=== PATIENT | female | born 1940 | race Caucasian/White ===

== ENCOUNTER 2021-04-03 22:41 | Emergency (ER) | payer OTHER, SELFPAY ==
--- NOTE | ~2021-04-03 | XR_ITS ---
EXAMINATION: XR CHEST CLINICAL INFORMATION: Shortness of breath COMPARISON: 09/04/2020 TECHNIQUE: Frontal view of the chest was obtained. FINDINGS: Previously seen lingular pneumonia has resolved. Some minimal atelectasis or scarring is present at the lung bases. The lungs are otherwise clear. Heart size is normal. Degenerative changes present in the spine as well as both shoulders. XR/XR chest 1V IMPRESSION: No acute intrathoracic disease. Mild bibasilar atelectasis
[2021-04-03 23:23] VITALS: BP 137/77; PULSE 103; RESP 20; TEMP 39.6; O2SAT 98; BMI 26.2
--- NOTE | 2021-04-03 23:45 | PC.NURSE ---
pt to room with family. Pt awaiting for md to eval.
--- NOTE | 2021-04-04 00:05 | ED_ITS ---
HPI - Fever General Chief Complaint: Fever Stated Complaint: weakness Time Seen by Provider: 04/03/21 23:56 History of Present Illness HPI Narrative: Patient is an 80-year-old female presents today with having fever generalized malaise. Tired. Minimal coughing. Patient did not receive the coronavirus vaccine. Patient has a history of questionable calcification to her lungs. There is no history of pain with urination. Patient has some nausea. Feels very weak and tired. Symptoms been ongoing for about 2 days. She recently came from [place] for vacation. Related Data Allergies Allergy/AdvReac Type Severity Reaction Status Date / Time No Known Allergies Allergy Unverified 07/12/20 19:46 [No Known Allergies*] Review of Systems Review of Systems: Yes all other systems are reviewed and are negative FORMERLY [facility], [facility] Past Medical History Attestation statement: The following information was validated with the patient. Social History Social History Advance Directives: No Advance Directives Information Provided: No Physical Exam Vital Signs: Vital Signs: Last Vital Signs Temp 103.2 F H 04/03/21 23:23 Pulse 103 H 04/03/21 23:23 Resp 20 04/03/21 23:23 BP 137/77 04/03/21 23:23 Pulse Ox 98 04/03/21 23:23 Body Mass Index 26.2 Appearance: Alert. Oriented X3. No acute distress. Eyes: Pupils equal, round and reactive to light. ENT: Pharynx normal. Neck: Normal inspection. Neck supple. No lymph nodes noted. No crepitus CVS: Normal heart rate and rhythm. Pulses normal. Normal S1 and S2 Respiratory: No respiratory distress. Breath sounds normal. No Wheezing. No rales Abdomen: Soft and nontender. No rigidity. No distention. good BS x4 Skin: Skin warm and dry. Normal skin color. Normal skin turgor. Extremities: No lower extremity edema. Neurovascular intact to all extremities. No Lacerations. No Rash Neuro: Oriented X 3. No motor deficit. No sensory deficit. Moving all extermities. No slurred speech MDM - Fever MDM Narrative Medical decision making narrative: Patient's temperature came down with Tylenol. Patient's labs consistent with dehydration given IV fluids here in the emergency department. Patient's coronavirus test was positive. Chest x-ray was negative for pneumonia. After ambulation patient's stat stays at 97% she is well appearing. Patient told to follow strict home quarantine. She is in no distress. In stable condition Medical Records Attestation: I reviewed the patient's medical records. Lab Data Attestation: I reviewed the patient's lab results. Result diagrams: 04/04/21 00:23 04/04/21 00:23 Labs: Lab Results 04/04/21 04/04/21 04/04/21 Range/Units 00: 00:21 00:23 WBC 7.0 (4.8-10.8) X10*3/uL RBC 4.20 (4.20-5.50) X10*6/uL Hgb 12.7 (12.0-16.0) g/dl Hct 37.5 (37-47) % MCV 89.3 (80-98) fL MCH 30.2 (27.0-33.0) pg MCHC 33.9 (31.0-35.0) g/dl RDW 14.6 (11.0-16.0) % Plt Count 225 (160-400) X10*3/uL MPV 10.1 (9.4-12.3) fL Immature Gran % (Auto) 0.9 H (0.0-0.4) % Neut % (Auto) 68.1 (45-73) % Lymph % (Auto) 23.3 (20-40) % [place] % (Auto) 7.6 (2-11) % Eos % (Auto) 0.0 (0-4) % Baso % (Auto) 0.1 (0-2) % Lymph # (Auto) 1.6 (1.2-4.9) X10*3/uL [place] # (Auto) 0.5 (0.1-1.2) X10*3/uL Eos # (Auto) 0.0 (0.0-0.4) X10*3/uL Baso # (Auto) 0.0 (0.0-0.2) X10*3/uL Abs Immat Gran (auto) 0.06 H (0.00-0.03) X10*3/uL Absolute Neuts (auto) 4.8 (2.0-8.3) X10*3/uL Absolute Nucleated RBC 0.000 (0.0-0.012) X10*3/uL Nucleated RBC % (auto) 0.0 (0.0-0.2) /100WBC PT (10.8-13.0) SEC INR (0.9-1.1) Sodium (135-145) mmol/L Potassium (3.3-5.1) mmol/L Chloride (96-108) mmol/L Carbon Dioxide (22-29) mmol/L Anion Gap (12-20) BUN (9-16) mg/dL Creatinine (0.5-1.4) mg/dL Estim Creat Clear Calc Estimated GFR Random Glucose (60-115) mg/dL Lactic Acid (0.5-2.0) mmol/L Calcium (8.4-10.2) mg/dL Total Bilirubin (0.0-1.0) mg/dL Direct Bilirubin (0.0-0.5) mg/dL AST (5-31) U/L ALT (0-31) U/L Alkaline Phosphatase (39-117) U/L Troponin I High Sens (<3.5-17.0) ng/L Total Protein (6.5-8.0) g/dL Albumin (3.5-5.0) g/dL Urine Color YELLOW Urine Appearance HAZY Urine pH 6.5 (5.0-8.0) Ur Specific [place] 1.020 (1.005-1.025) Urine Protein 2+ H (NEG-TRACE) MG/DL Urine Glucose (UA) NEG (NEG) MG/DL Urine Ketones NEG (NEG) MG/DL Urine Blood TRACE (NEG) Urine Nitrite NEG (NEG) Ur Leukocyte Esterase 2+ H (NEG) Urine RBC 1-4 (0) /HPF Urine WBC 30-49 H (0-4) /HPF Ur Squamous Epith Cells 1+ /LPF Urine Bacteria 2+ /LPF Urine Mucus 1+ /LPF COVID-19 (ZONIA) Positive A (Negative) COVID-19 Clin Com See Note 04/04/21 04/04/21 04/04/21 Range/Units 00:23 00:23 00:23 WBC (4.8-10.8) X10*3/uL RBC (4.20-5.50) X10*6/uL Hgb (12.0-16.0) g/dl Hct (37-47) % MCV (80-98) fL MCH (27.0-33.0) pg MCHC (31.0-35.0) g/dl RDW (11.0-16.0) % Plt Count (160-400) X10*3/uL MPV (9.4-12.3) fL Immature Gran % (Auto) (0.0-0.4) % Neut % (Auto) (45-73) % Lymph % (Auto) (20-40) % [place] % (Auto) (2-11) % Eos % (Auto) (0-4) % Baso % (Auto) (0-2) % Lymph # (Auto) (1.2-4.9) X10*3/uL [place] # (Auto) (0.1-1.2) X10*3/uL Eos # (Auto) (0.0-0.4) X10*3/uL Baso # (Auto) (0.0-0.2) X10*3/uL Abs Immat Gran (auto) (0.00-0.03) X10*3/uL Absolute Neuts (auto) (2.0-8.3) X10*3/uL Absolute Nucleated RBC (0.0-0.012) X10*3/uL Nucleated RBC % (auto) (0.0-0.2) /100WBC PT 13.9 H (10.8-13.0) SEC INR 1.2 H (0.9-1.1) Sodium 135 (135-145) mmol/L Potassium 4.3 (3.3-5.1) mmol/L Chloride 101 (96-108) mmol/L Carbon Dioxide 25 (22-29) mmol/L Anion Gap 13 (12-20) BUN 30 H (9-16) mg/dL Creatinine 1.49 H (0.5-1.4) mg/dL Estim Creat Clear Calc 22.7 Estimated GFR 34 Random Glucose 192 H (60-115) mg/dL Lactic Acid 1.0 (0.5-2.0) mmol/L Calcium 11.2 H (8.4-10.2) mg/dL Total Bilirubin 0.5 (0.0-1.0) mg/dL Direct Bilirubin 0.2 (0.0-0.5) mg/dL AST 39 H (5-31) U/L ALT 27 (0-31) U/L Alkaline Phosphatase 40 (39-117) U/L Troponin I High Sens (<3.5-17.0) ng/L Total Protein 7.5 (6.5-8.0) g/dL Albumin 4.2 (3.5-5.0) g/dL Urine Color Urine Appearance Urine pH (5.0-8.0) Ur Specific [place] (1.005-1.025) Urine Protein (NEG-TRACE) MG/DL Urine Glucose (UA) (NEG) MG/DL Urine Ketones (NEG) MG/DL Urine Blood (NEG) Urine Nitrite (NEG) Ur Leukocyte Esterase (NEG) Urine RBC (0) /HPF Urine WBC (0-4) /HPF Ur Squamous Epith Cells /LPF Urine Bacteria /LPF Urine Mucus /LPF COVID-19 (ZONIA) (Negative) COVID-19 Clin Com 04/04/21 Range/Units 00:23 WBC (4.8-10.8) X10*3/uL RBC (4.20-5.50) X10*6/uL Hgb (12.0-16.0) g/dl Hct (37-47) % MCV (80-98) fL MCH (27.0-33.0) pg MCHC (31.0-35.0) g/dl RDW (11.0-16.0) % Plt Count (160-400) X10*3/uL MPV (9.4-12.3) fL Immature Gran % (Auto) (0.0-0.4) % Neut % (Auto) (45-73) % Lymph % (Auto) (20-40) % [place] % (Auto) (2-11) % Eos % (Auto) (0-4) % Baso % (Auto) (0-2) % Lymph # (Auto) (1.2-4.9) X10*3/uL [place] # (Auto) (0.1-1.2) X10*3/uL Eos # (Auto) (0.0-0.4) X10*3/uL Baso # (Auto) (0.0-0.2) X10*3/uL Abs Immat Gran (auto) (0.00-0.03) X10*3/uL Absolute Neuts (auto) (2.0-8.3) X10*3/uL Absolute Nucleated RBC (0.0-0.012) X10*3/uL Nucleated RBC % (auto) (0.0-0.2) /100WBC PT (10.8-13.0) SEC INR (0.9-1.1) Sodium (135-145) mmol/L Potassium (3.3-5.1) mmol/L Chloride (96-108) mmol/L Carbon Dioxide (22-29) mmol/L Anion Gap (12-20) BUN (9-16) mg/dL Creatinine (0.5-1.4) mg/dL Estim Creat Clear Calc Estimated GFR Random Glucose (60-115) mg/dL Lactic Acid (0.5-2.0) mmol/L Calcium (8.4-10.2) mg/dL Total Bilirubin (0.0-1.0) mg/dL Direct Bilirubin (0.0-0.5) mg/dL AST (5-31) U/L ALT (0-31) U/L Alkaline Phosphatase (39-117) U/L Troponin I High Sens 28.5 H* (<3.5-17.0) ng/L Total Protein (6.5-8.0) g/dL Albumin (3.5-5.0) g/dL Urine Color Urine Appearance Urine pH (5.0-8.0) Ur Specific [place] (1.005-1.025) Urine Protein (NEG-TRACE) MG/DL Urine Glucose (UA) (NEG) MG/DL Urine Ketones (NEG) MG/DL Urine Blood (NEG) Urine Nitrite (NEG) Ur Leukocyte Esterase (NEG) Urine RBC (0) /HPF Urine WBC (0-4) /HPF Ur Squamous Epith Cells /LPF Urine Bacteria /LPF Urine Mucus /LPF COVID-19 (ZONIA) (Negative) COVID-19 Clin Com Discharge Plan Discharge Clinical Impression: COVID-19 Patient Disposition: Home, Self-Care Instructions: COVID-19 (Coronavirus Disease 2019) (ED) Print Language: Bruneian
[2021-04-04] MEDS: Acetaminophen 325 MG TABLET 650 MG PO (00:15)
[2021-04-04] MEDS: 0.9 % Sodium Chloride 1,769.01 ML 1769.01 ML IV (00:16)
[2021-04-04 00:52] LABS: MANUAL DIFF FLAG NO
[2021-04-04 00:54] LABS: Basophils Percent Auto 0.1 % (0-2); Hematocrit 37.5 % (37-47); Hemoglobin 12.7 g/dl (12.0-16.0); Imm Gran Abs Auto 0.06 X10*3/uL (0.00-0.03); Imm Gran Pct Auto 0.9 % (0.0-0.4); Lymphocytes Absolute Auto 1.6 X10*3/uL (1.2-4.9); Lymphocytes Percent Auto 23.3 % (20-40); Mean Corpuscular HGB Conc 33.9 g/dl (31.0-35.0); Mean Corpuscular Hemoglobin 30.2 pg (27.0-33.0); Mean Corpuscular Volume 89.3 fL (80-98); Mean Platelet Volume 10.1 fL (9.4-12.3); Monocytes Absolute Auto 0.5 X10*3/uL (0.1-1.2); Monocytes Percent Auto 7.6 % (2-11); Neutrophils Absolute Auto 4.8 X10*3/uL (2.0-8.3); Neutrophils Percent Auto 68.1 % (45-73); Platelet Count 225 X10*3/uL (160-400); Red Cell Distribution Width 14.6 % (11.0-16.0)
[2021-04-04 00:55] LABS: Glucose Urine UA NEG (NEG); Leukocyte Esterase Urine 2+ (NEG); Nitrite Urine NEG (NEG); PH 6.5 (5.0-8.0); UACC Culture Trigger YES; Urine Blood TRACE (NEG); Urine Ketones NEG (NEG); Urine Protein 2+ MG/DL (NEG-TRACE)
[2021-04-04 00:57] LABS: Appearance Urine HAZY; Color Urine YELLOW
[2021-04-04 00:59] LABS: INTERNATIONAL NORM RATIO 1.2 (0.9-1.1); Prothrombin Time 13.9 SEC (10.8-13.0)
[2021-04-04 01:07] LABS: Bacteria Urine 2+ /LPF; Mucus Urine 1+ /LPF; Squamous Epithelial Cell Urine 1+ /LPF; WBC Urine 30-49 /HPF (0-4)
[2021-04-04 01:07] LABS: COVID-19 Test Positive (Negative); IDNOW Serial# 08D9AD1C
[2021-04-04 01:32] LABS: Troponin-I High Sensitivity 28.5 ng/L (<3.5-17.0)
[2021-04-04 01:40] LABS: Alanine Aminotransferase 27 U/L (0-31); Albumin Level 4.2 g/dL (3.5-5.0); Alkaline Phosphatase 40 U/L (39-117); Anion Gap 13 (12-20); Aspartate Amino Transferase 39 U/L (5-31); Bilirubin Direct 0.2 mg/dL (0.0-0.5); Bilirubin Total 0.5 mg/dL (0.0-1.0); Blood Urea Nitrogen 30 mg/dL (9-16); Calcium 11.2 mg/dL (8.4-10.2); Carbon Dioxide 25 mmol/L (22-29); Chloride 101 mmol/L (96-108); Creatinine Clr Calc Pharmacy 22.7; Estimated Glomerular Filt Rate 34; Glucose Random 192 mg/dL (60-115); Potassium 4.3 mmol/L (3.3-5.1); Sodium 135 mmol/L (135-145); Total Protein 7.5 g/dL (6.5-8.0)
[2021-04-04 04:27] VITALS: BP 114/68; PULSE 86; O2SAT 97
== END 2021-04-04 04:54 | disposition home or self-care (01) ==
PROVIDERS: Emergency Provider Emergency Medicine Emergency Medical Services
DX: U07.1 COVID-19 (principal); N39.0 Urinary tract infection, site not specified; R53.1 Weakness; R50.9 Fever, unspecified; E11.9 Type 2 diabetes mellitus without complications
CPT/HCPCS: 36415; 71045; 80048; 80076; 81001; 81003; 83605; 84484; 85025; 85610; 87040; 87077; 87086; 87088; 87186; 87205; 87635; 96360; 99283; 99284

== ENCOUNTER 2021-04-05 12:27 | Inpatient (IN) | payer OTHER, SELFPAY ==
[2021-04-05 12:32] VITALS: BP 112/66; PULSE 87; RESP 18; TEMP 37.4; O2SAT 94; BMI 26.2
--- NOTE | 2021-04-05 13:10 | PC.NURSE ---
vomiting in wr. commercial housekeeper to bring pt in.
--- NOTE | 2021-04-05 13:20 | ED_ITS ---
HPI - Recheck/Abnormal Lab/Rx General Chief Complaint: Recheck/Abnormal Lab/Rx Stated Complaint: positive blood cultures Time Seen by Provider: 04/05/21 13:11 Source: patient and intermission coordinator Mode of arrival: ambulatory Limitations: no limitations History of Present Illness HPI narrative: sick x 3 days with fever n/v/d dx with COVID on 04/04 complaint: abnormal lab Initial visit (ago): day(s) (yesterday) Initial visit for: other (COVID positive) Returns today for: called because of abnormal lab/test Description of abnormal result: 2/2 staph blood cultures GNR in urine Symptoms since prior visit: improved Context: called for abnormal lab result and called for positive culture result Associated symptoms: fever Treatments prior to arrival: home treatments Related Data Allergies Allergy/AdvReac Type Severity Reaction Status Date / Time No Known Allergies Allergy Verified 04/05/21 12:31 [No Known Allergies*] Review of Systems Review of Systems: Constitutional : No Weight loss, No Fever, No Chills ENT/Mouth : No sore throat, No Rhinorrhea Eyes: No Swelling, No Redness Cardiovascular : No Chest Pain, No SOB, NoEdema Respiratory : No Cough, No Sputum, No Wheezing Gastrointestinal : Positive Nausea, Positive Vomiting, positive Diarrhea, no abdominal Pain, No Hematochezia, No Melena Genitourinary : No Dysuria, No Urinary Frequency, No Hematuria, No Urgency Musculoskeletal : No joint pain, No Myalgias, No Joint Swelling Skin : No Skin Lesions, No rash Neuro : pos Weakness, No Numbness, No Dizziness, No Headache Psych : No Anxiety/Panic, No Depression Heme/Lymph: No Bruising, No Lymphadenopathy Endocrine : No Polyuria, No Polydipsia All other systems reviewed and are negative. [facility] Past Medical History Attestation statement: The following information was validated with the patient. Medical History Asthma Calcification of lung Diabetes Social History Social History (Updated 04/05/21 @ 13:55 by Felecia De Los Santos DO) Patient Tobacco Use Status: Never used Tobacco Use of substances other than those prescribed or required for medical reasons: No Advance Directives: No Advance Directives Information Provided: Yes Physical Exam Vital Signs: Vital Signs: Last Vital Signs Temp 99.3 F 04/05/21 12:32 Pulse 95 04/05/21 14:33 Resp 18 04/05/21 14:33 BP 136/64 04/05/21 14:33 Pulse Ox 95 04/05/21 14:33 Body Mass Index 26.2 Appearance: Alert. Oriented X3. No acute distress. Eyes: Pupils equal, round and reactive to light. ENT: Pharynx normal. Neck: Normal inspection. Neck supple. CVS: Normal heart rate and rhythm. Pulses normal. Respiratory: No respiratory distress. Breath sounds normal. Abdomen: Soft and nontender. Skin: Skin warm and dry. Normal skin color. Normal skin turgor. Extremities: No lower extremity edema. No calf ttp Neuro: Oriented X 3. No motor deficit. No sensory deficit. Course Course Course Narrative: will need to admit for further workup, WON on presentation, cultures drawn in last 24 hours, antibiotics given based off those cultures and UA for GNR from yesterday as well MDM - Recheck/Abnormal Lab/Rx MDM Narrative Medical decision making narrative: 80 yo female with asthma just traveled from [place] on 03/21 tested positive for COVID 04/04 iniitally came in for n/v/d and fevers, she is able to tolerate PO, no abdominal ttp, no hypoxia clear lungs negative CXR yesterday she has GNR in urine and 2/2 GPC clusters in blood which seems unusual, will repeat cultures, lactic acid, give zofran and IVF, empiric ceftriaxone given her urine results, currently normal O2 and clear lungs Lab Data Result diagrams: 04/05/21 14:58 04/05/21 14:58 Labs: Lab Results 04/05/21 04/05/21 04/05/21 Range/Units 14:58 14:58 14:58 WBC 7.7 (4.8-10.8) X10*3/uL RBC 4.30 (4.20-5.50) X10*6/uL Hgb 12.9 (12.0-16.0) g/dl Hct 38.6 (37-47) % MCV 89.8 (80-98) fL MCH 30.0 (27.0-33.0) pg MCHC 33.4 (31.0-35.0) g/dl RDW 14.8 (11.0-16.0) % Plt Count 230 (160-400) X10*3/uL MPV 10.3 (9.4-12.3) fL Immature Gran % (Auto) 0.9 H (0.0-0.4) % Neut % (Auto) 72.2 (45-73) % Lymph % (Auto) 22.2 (20-40) % [place] % (Auto) 4.4 (2-11) % Eos % (Auto) 0.0 (0-4) % Baso % (Auto) 0.3 (0-2) % Lymph # (Auto) 1.7 (1.2-4.9) X10*3/uL [place] # (Auto) 0.3 (0.1-1.2) X10*3/uL Eos # (Auto) 0.0 (0.0-0.4) X10*3/uL Baso # (Auto) 0.0 (0.0-0.2) X10*3/uL Abs Immat Gran (auto) 0.07 H (0.00-0.03) X10*3/uL Absolute Neuts (auto) 5.5 (2.0-8.3) X10*3/uL Absolute Nucleated RBC 0.000 (0.0-0.012) X10*3/uL Nucleated RBC % (auto) 0.0 (0.0-0.2) /100WBC Sodium 136 (135-145) mmol/L Potassium 4.7 (3.3-5.1) mmol/L Chloride 101 (96-108) mmol/L Carbon Dioxide 27 (22-29) mmol/L Anion Gap 13 (12-20) BUN 35 H (9-16) mg/dL Creatinine 1.80 H (0.5-1.4) mg/dL Estim Creat Clear Calc 18.8 Estimated GFR 27 Random Glucose 161 H (60-115) mg/dL Lactic Acid 1.4 (0.5-2.0) mmol/L Calcium 10.5 H D (8.4-10.2) mg/dL Discharge Plan Discharge Clinical Impression: COVID-19, Acute UTI, Positive blood culture, Acute dehydration, WON (acute kidney injury) Patient Disposition: Admitted As Inpatient
[2021-04-05 14:33] VITALS: BP 136/64; PULSE 95; RESP 18; O2SAT 95
--- NOTE | 2021-04-05 15:03 | PC.NURSE ---
pt has very difficult IV access. IV established after several attempts and hot packs to arms. Blood culture fist set drawn, will update MD
[2021-04-05 15:11] LABS: MANUAL DIFF FLAG NO
[2021-04-05 15:13] LABS: Basophils Percent Auto 0.3 % (0-2); Hematocrit 38.6 % (37-47); Hemoglobin 12.9 g/dl (12.0-16.0); Imm Gran Abs Auto 0.07 X10*3/uL (0.00-0.03); Imm Gran Pct Auto 0.9 % (0.0-0.4); Lymphocytes Absolute Auto 1.7 X10*3/uL (1.2-4.9); Lymphocytes Percent Auto 22.2 % (20-40); Mean Corpuscular HGB Conc 33.4 g/dl (31.0-35.0); Mean Corpuscular Volume 89.8 fL (80-98); Mean Platelet Volume 10.3 fL (9.4-12.3); Monocytes Absolute Auto 0.3 X10*3/uL (0.1-1.2); Monocytes Percent Auto 4.4 % (2-11); Neutrophils Absolute Auto 5.5 X10*3/uL (2.0-8.3); Neutrophils Percent Auto 72.2 % (45-73); Platelet Count 230 X10*3/uL (160-400); Red Cell Distribution Width 14.8 % (11.0-16.0); White Blood Count 7.7 X10*3/uL (4.8-10.8)
[2021-04-05 15:34] LABS: Lactic Acid 1.4 mmol/L (0.5-2.0)
[2021-04-05] MEDS: 0.9 % Sodium Chloride 1,000 ML 999 ML IVCONT (15:38)
[2021-04-05] MEDS: ondansetron HCL 4 MG/2 ML VIAL IVPUSH (15:38)
[2021-04-05 15:44] LABS: Anion Gap 13 (12-20); Blood Urea Nitrogen 35 mg/dL (9-16); Calcium 10.5 mg/dL (8.4-10.2); Carbon Dioxide 27 mmol/L (22-29); Chloride 101 mmol/L (96-108); Creatinine Clr Calc Pharmacy 18.8; Estimated Glomerular Filt Rate 27; Glucose Random 161 mg/dL (60-115); Potassium 4.7 mmol/L (3.3-5.1); Sodium 136 mmol/L (135-145)
[2021-04-05] MEDS: cefTRIAXone sodium 1 GM in 0.9 % Sodium Chloride 50 ML IV (15:44)
--- NOTE | 2021-04-05 16:19 | PHA.MEDREC ---
Pharmacy Consult ? Medication Reconciliation Pharmacy has completed the medication reconciliation. Patients daughter brought in all medication bottle, no remarkable issues to report. Giuliana Chow, PharmD
--- NOTE | 2021-04-05 17:28 | P.HPHOSP_ITS ---
History of Present Illness Date of Service: 04/05/21 <RAFY Wright - Last Filed: 04/05/21 17:50> Chief Complaint: Positive blood cultures <RAFY Wright - Last Filed: 04/05/21 17:50> This is an 80-year-old [place]-speaking male who initially presented to the emergency department yesterday with complaints of nausea vomiting and diarrhea. She tested positive for COVID-19. Her chest x-ray was unremarkable and she did not require oxygen therefore she was discharged home. She was called to return to the hospital today with her blood cultures returned 2/2 positive her urine culture is also positive for gram-negative rods. She denies any abdominal pain, nausea, vomiting, diarrhea at this time. Her previous symptoms seem to have resolved completely. She denies any fever or chills. She has not had any cough or shortness of breath. In the emergency department today her workup was significant for acute kidney injury with a serum creatinine of 1.80. She was given a dose of IV ceftriaxone for underlying UTI decision was made to admit her for further management. <RAFY Wright - Last Filed: 04/05/21 17:50> Review of Systems Review of Systems: Yes all other systems are reviewed and are negative <RAFY Wright - Last Filed: 04/05/21 17:50> Constitutional: Constitutional: Denies chills and Denies fever(s) <RAFY Wright - Last Filed: 04/05/21 17:50> Cardiovascular: Cardiovascular: Denies chest pain <RAFY Wright Last Filed: 04/05/21 17:50> Respiratory: Respiratory: Denies cough <RAFY Wright Last Filed: 04/05/21 17:50> Gastrointestinal: Gastrointestinal: Denies abdominal pain <RAFY Wright Last Filed: 04/05/21 17:50> [facility] Medical History: Medical History Asthma Calcification of lung Diabetes <RAFY Wright Last Filed: 04/05/21 17:50> Functional capacity: independent ambulation <RAFY Wright - Last Filed: 04/05/21 17:50> Family history: reviewed and not pertinent <RAFY Wright - Last Filed: 04/05/21 17:50> Social History: Social History (Updated 04/05/21 @ 17:33 by RAFY Wright) Patient Tobacco Use Status: Former Tobacco user Use of substances other than those prescribed or required for medical reasons: No Advance Directives: No Advance Directives Information Provided: Yes <RAFY Wright - Last Filed: 04/05/21 17:50> Meds Allergies/Adverse reactions: Allergies Allergy/AdvReac Type Severity Reaction Status Date / Time No Known Allergies Allergy Verified 04/05/21 12:31 [No Known Allergies*] <RAFY Wright - Last Filed: 04/05/21 17:50> Active Medications: Current Medications Generic Name Dose Route Start Last Admin Trade Name Freq PRN Reason Stop Dose Admin Pharmacy Consult 1 each 04/05/21 15:49 Consult Rx Perform Med Rec MISCELLANE ONCE PRN Consult order <RAFY Wright - Last Filed: 04/05/21 17:50> Home medications: Home Medications Medication Instructions Recorded Confirmed Last Taken Type benzonatate 100 mg PO QID PRN 04/05/21 04/05/21 Unknown History budesonide 0.5 mg INHALATION BEDTIME 04/05/21 04/05/21 Unknown History gabapentin 100 mg PO DAILY 04/05/21 04/05/21 Unknown History glipizide 5 mg PO DAILY 04/05/21 04/05/21 Unknown History levothyroxine 25 mcg PO DAILY 04/05/21 04/05/21 Unknown History melatonin 3 mg PO BEDTIME 04/05/21 04/05/21 Unknown History olmesartan 20 mg PO DAILY 04/05/21 04/05/21 Unknown History omeprazole 40 mg PO DAILY 04/05/21 04/05/21 Unknown History revefenacin 175 mcg INHALATION DAILY 04/05/21 04/05/21 Unknown History simvastatin 40 mg PO BEDTIME 04/05/21 04/05/21 Unknown History <RAFY Wright - Last Filed: 04/05/21 17:50> Physical Exam Vital Signs and Narrative: Vital Signs: Last Vital Signs Temp 99.3 F 04/05/21 12:32 Pulse 95 04/05/21 14:33 Resp 18 04/05/21 14:33 BP 136/64 04/05/21 14:33 Pulse Ox 95 04/05/21 14:33 Body Mass Index 26.2 <RAFY Wright - Last Filed: 04/05/21 17:50> Const: General: comfortable, no acute distress, alert and awake <RAFY Wright - Last Filed: 04/05/21 17:50> Nutritional Appearance: well nourished <RAFY Wright - Last Filed: 04/05/21 17:50> Orientation/consciousness: patient oriented x3 <RAFY Wright - Last Filed: 04/05/21 17:50> HENMT: Head: Yes normocephalic and Yes atraumatic <RAFY Wright - Last Filed: 04/05/21 17:50> Eyes: Sclerae: sclerae normal <RAFY Wright - Last Filed: 04/05/21 17:50> Chest: Chest palpation & inspection: normal inspection of the chest <RAFY Wright - Last Filed: 04/05/21 17:50> Resp: Effort & Inspection: normal respiratory effort and no respiratory distress <RAFY Wright - Last Filed: 04/05/21 17:50> Auscultation: clear to auscultation bilaterally <RAFY Wright - Last Filed: 04/05/21 17:50> Cardio: Rate: regular rate <RAFY Wright - Last Filed: 04/05/21 17:50> Rhythm: regular rhythm <RAFY Wright - Last Filed: 04/05/21 17:50> GI: Palpation (GI): Soft to palpation and nontender <RAFY Wright - Last Filed: 04/05/21 17:50> Skin: General skin exam: no rashes or lesions noted <RAFY Wright - Last Filed: 04/05/21 17:50> Neuro: General: patient oriented x3 <RAFY Wright - Last Filed: 04/05/21 17:50> Cranial nerves: Yes CN's II-XII intact bilaterally and Yes Bilaterally intact EOM present <RAFY Wright - Last Filed: 04/05/21 17:50> Extrem: General: Yes normal to inspection <RAFY Wright - Last Filed: 04/05/21 17:50> Results Labs CBC and Chem 7: : 04/05/21 14:58 04/05/21 14:58 <RAFY Wright - Last Filed: 04/05/21 17:50> Labs: Laboratory Results - last 24 hr 04/05/21 04/05/21 04/05/21 14:58 14:58 14:58 MCV 89.8 MCH 30.0 MCHC 33.4 RDW 14.8 Plt Count 230 MPV 10.3 Immature Gran % (Auto) 0.9 H Neut % (Auto) 72.2 Lymph % (Auto) 22.2 [place] % (Auto) 4.4 Eos % (Auto) 0.0 Baso % (Auto) 0.3 Lymph # (Auto) 1.7 [place] # (Auto) 0.3 Eos # (Auto) 0.0 Baso # (Auto) 0.0 Abs Immat Gran (auto) 0.07 H Absolute Neuts (auto) 5.5 Absolute Nucleated RBC 0.000 Nucleated RBC % (auto) 0.0 Anion Gap 13 Estim Creat Clear Calc 18.8 Estimated GFR 27 Random Glucose 161 H Lactic Acid 1.4 Calcium 10.5 H D <RAFY Wright - Last Filed: 04/05/21 17:50> Assessment and Plan (1) COVID-19: Status: Acute <RAFY Wright - Last Filed: 04/05/21 17:50> (2) Acute UTI: Status: Acute <RAFY Wright - Last Filed: 04/05/21 17:50> (3) Positive blood culture: Status: Acute <RAFY Wright - Last Filed: 04/05/21 17:50> This is a 80-year-old [place]-speaking female visiting from [place] was seen in the emergency department yesterday for nausea vomiting diarrhea diagnosed with COVID-19 and call to return to the hospital today due to positive blood cultures Bacteremia 2/2 blood cultures positive for Staphylococcus species -vanco empiric dose -follow final culture results -repeat blood cultures pending UTI Preliminary urine culture growing Gram-negative rods -continue IV ceftriaxone WON Scr up to 1.8 from 1.49 yesterday may be from vomiting and diarrhea, although both have resolved at this time -hold olmesartan -IVF -follow renal function COVID-19 Asymptomatic, no hypoxia. Supportive care as needed Diabetes -glipizide on hold -SSI, POCs Hypothyroidism -continue levothyroxine dvt ppx - heparin code status - dnr/dni attending - dr. kaur <RAFY Wright - Last Filed: 04/05/21 17:50> (4) WON (acute kidney injury): Status: Acute <RAFY Wright - Last Filed: 04/05/21 17:50> (5) Acute dehydration: Status: Acute <RAFY Wright - Last Filed: 04/05/21 17:50>
[2021-04-05] MEDS: vancomycin HCL 1,000 MG in 0.9 % Sodium Chloride 250 ML 270 MG IV (18:30)
[2021-04-05 19:13] LABS: Troponin-I High Sensitivity 19.9 ng/L (<3.5-17.0)
--- NOTE | 2021-04-05 19:13 | PC.NURSE ---
COVERING HOSPITALIST NOTIFIED.
[2021-04-05 20:00] VITALS: BP 118/44; PULSE 106; RESP 15; O2SAT 95
[2021-04-05 21:51] LABS: Glucose, Whole Blood 110 mg/dL (60-115)
[2021-04-05 22:46] VITALS: BP 166/70; PULSE 103; RESP 20; TEMP 36.9; O2SAT 90
[2021-04-05] MEDS: Melatonin 3 MG TABLET PO (23:22)
[2021-04-05] MEDS: Atorvastatin Calcium 20 MG TABLET PO (23:22)
[2021-04-05] MEDS: Lactated Ringers 1,000 ML 80 ML IVCONT (23:22)
[2021-04-05] MEDS: Heparin Sodium,Porcine 5,000 UNIT/ML VIAL 5000 UNIT SUBCUT (23:23)
[2021-04-06 03:49] VITALS: BP 120/57; PULSE 95; RESP 18; TEMP 37.4; O2SAT 95
[2021-04-06 07:17] LABS: Glucose, Whole Blood 168 mg/dL (60-115)
[2021-04-06 07:21] VITALS: BP 113/58; PULSE 80; RESP 18; TEMP 36.9; O2SAT 94
[2021-04-06 07:27] LABS: Anion Gap 17 (12-20); Blood Urea Nitrogen 23 mg/dL (9-16); Calcium 9.7 mg/dL (8.4-10.2); Carbon Dioxide 18 mmol/L (22-29); Chloride 106 mmol/L (96-108); Creatinine Clr Calc Pharmacy 26.7; Estimated Glomerular Filt Rate 40; Glucose Random 151 mg/dL (60-115); Potassium 4.7 mmol/L (3.3-5.1); Sodium 136 mmol/L (135-145)
[2021-04-06] MEDS: Omeprazole 40 MG CAPSULE.DR PO (08:32)
[2021-04-06] MEDS: Insulin Lispro 100 UNIT/ML 3 ML VIAL SUBCUT (08:32)
[2021-04-06] MEDS: Levothyroxine Sodium 25 MCG TABLET PO (08:33)
[2021-04-06] MEDS: Gabapentin 100 MG CAPSULE PO (08:33)
[2021-04-06] MEDS: Heparin Sodium,Porcine 5,000 UNIT/ML VIAL 5000 UNIT SUBCUT (09:45)
[2021-04-06 11:44] VITALS: BP 118/56; PULSE 80; RESP 18; TEMP 36.7; O2SAT 92
[2021-04-06 11:45] LABS: Glucose, Whole Blood 107 mg/dL (60-115)
[2021-04-06] MEDS: Lactated Ringers 1,000 ML 80 ML IVCONT (13:24)
[2021-04-06] MEDS: cefTRIAXone sodium 1 GM in 0.9 % Sodium Chloride 50 ML IV (13:24)
[2021-04-06 15:27] VITALS: BP 136/58; PULSE 78; RESP 18; TEMP 37.1; O2SAT 95
--- NOTE | 2021-04-06 16:07 | PM.DS ---
DS: Providers Provider Date of Service: 04/06/21 Date of admission: 04/05/21 17:26 Primary care physician: Nonstaff Physician DS: Diagnosis Discharge Diagnosis (1) COVID-19: Status: Acute (2) Acute UTI: Status: Acute (3) Positive blood culture: Status: Acute (4) WON (acute kidney injury): Status: Acute (5) Acute dehydration: Status: Acute DS: Medications Discharge Medications Home Medications: Home Medications Medication Instructions Recorded Confirmed benzonatate 100 mg PO QID PRN 04/05/21 04/05/21 budesonide 0.5 mg INHALATION BEDTIME 04/05/21 04/05/21 gabapentin 100 mg PO DAILY 04/05/21 04/05/21 glipizide 5 mg PO DAILY 04/05/21 04/05/21 levothyroxine 25 mcg PO DAILY 04/05/21 04/05/21 melatonin 3 mg PO BEDTIME 04/05/21 04/05/21 olmesartan 20 mg PO DAILY 04/05/21 04/05/21 omeprazole 40 mg PO DAILY 04/05/21 04/05/21 revefenacin 175 mcg INHALATION DAILY 04/05/21 04/05/21 simvastatin 40 mg PO BEDTIME 04/05/21 04/05/21 DS: Summary Hospital Course Hospital Course: 80-year-old Dominican-speaking male who initially presented to the emergency department yesterday with complaints of nausea vomiting and diarrhea. She tested positive for COVID-19. Her chest x-ray was unremarkable and she did not require oxygen therefore she was discharged home. She was called to return to the hospital today with her blood cultures returned 2/2 positive her urine culture is also positive for gram-negative rods. She denies any abdominal pain, nausea, vomiting, diarrhea at this time. Her previous symptoms seem to have resolved completely. She denies any fever or chills. She has not had any cough or shortness of breath. In the emergency department today her workup was significant for acute kidney injury with a serum creatinine of 1.80. She was given a dose of IV ceftriaxone for underlying UTI decision was made to admit her for further management. Hospital course: Patient was admitted because of bacteremia and put on Vancomycin for gram positive cocci and Ceftriaxone for UTI. She is assymptomatic with covid and and there is no indication oxygen, steroid or other.. Next day, culture came 1/2 for coag negativestah and 1/2 for Staph hominis and this is deem contamination. Urine culture however shows Klebsiela that is sensitive to Ceftriaxone, therefore will give her oral Ceftin. Her initial symptoms were likely due to UTI. She had WON related to dehydration and was hydrated with resolution--Creatinine was 1.80 and now 1.27 will encourage to continue drinking plenty of water. Instructed to come to ED should she experience escalating symptoms of covid such as fever, shortness of breath Time Spent with Patient Time attestation: Total time spent providing and/or coordinating discharge services: Discharge coordination time: Greater than 30 minutes Quality: Stroke Does the patient have a stroke diagnosis?: No Physical Exam Vital Signs: Vital Signs: Last Vital Signs Temp 98.8 F 04/06/21 15:27 Pulse 78 04/06/21 15:27 Resp 18 04/06/21 15:27 BP 136/58 L 04/06/21 15:27 Pulse Ox 95 04/06/21 15:27 Body Mass Index 26.2 Constitutional Awake and Alert, No apparent distress Neck Supple, No lymphadenopathy Cardiovascular RRR, No M/R/G, S1 S2, No S3 S4, No pedal edema Respiratory Lungs clear, No respiratory distress Gastrointestinal Non tender, Non-distended Skin No rash Neurological Alert & oriented x3 Psychological Appropriate affect DS: Data Data Completed and Pending Labs on day of discharge: Laboratory Results - last 24 hr 04/05/21 04/05/21 04/06/21 18:26 21:47 05:41 Sodium 136 Potassium 4.7 Chloride 106 Carbon Dioxide 18 L Anion Gap 17 BUN 23 H Creatinine 1.27 Estim Creat Clear Calc 26.7 Estimated GFR 40 POC Glucose 110 Random Glucose 151 H Calcium 9.7 D Troponin I High Sens 19.9 H* 04/06/21 04/06/21 07:01 11:27 Sodium Potassium Chloride Carbon Dioxide Anion Gap BUN Creatinine Estim Creat Clear Calc Estimated GFR POC Glucose 168 H 107 Random Glucose Calcium Troponin I High Sens Discharge Plan Discharge Anticipated Discharge Date/Time: 04/06/21 16:04 Patient Disposition: Home, Self-Care Discharge Diagnosis: Dehydration, renal failure, covid Referrals: Physician,Nonstaff [Primary Care Provider] - 1 Week Discharge Medications: New cefuroxime axetil 250 mg tablet 250 mg PO BID Qty: 10 RF: 0 Continued melatonin 3 mg Tablet 3 mg PO BEDTIME RF: 0 omeprazole 40 mg Capsule,Delayed Release(Dr/Ec) 40 mg PO DAILY RF: 0 simvastatin 40 mg Tablet 40 mg PO BEDTIME RF: 0 levothyroxine 25 mcg Tablet 25 mcg PO DAILY RF: 0 benzonatate 100 mg Capsule 100 mg PO QID PRN (Reason: Cough) RF: 0 budesonide 0.5 mg/2 mL Suspension For Nebulization 0.5 mg INHALATION BEDTIME RF: 0 gabapentin 100 mg Capsule 100 mg PO DAILY RF: 0 glipizide 5 mg Tablet 5 mg PO DAILY RF: 0 olmesartan 20 mg Tablet 20 mg PO DAILY RF: 0 revefenacin 175 mcg/3 mL Solution For Nebulization 175 mcg INHALATION DAILY RF: 0 Discharge Orders: Discharge Order (Routine); Ordered 04/06/21 Ordered By: Bryson Avila Diet: advance to usual diet Activity on Discharge: As tolerated Stand Alone Forms: Patient Portal Discharge page Care Plan Goals: prevent rehospitalization and dehydration Health Concerns: Dehydration, renal failure and covid Plan of Treatment: Drink plenty of fluid to avoid dehdration, take Ceftin for UTI and stay in isolation at home for covid for at least 10 days and fever or cough free Insert Assessment: See above Discharge Date/Time: 04/06/21 17:31
[2021-04-06 16:30] LABS: Glucose, Whole Blood 114 mg/dL (60-115)
== END 2021-04-06 17:31 | disposition home or self-care (01) | DRG 689 ==
LOC: HO.ED 15:54 → HO.EDOVER 17:38 → HO.IMC 21:18
PROVIDERS: Internal Medicine; Admitting Provider Physician Assistant Medical; Emergency Provider Emergency Medicine; Visit Provider Internal Medicine
DX: N39.0 Urinary tract infection, site not specified (principal); U07.1 COVID-19; N17.9 Acute kidney failure, unspecified; R78.81 Bacteremia; E86.0 Dehydration; Z79.84 Long term (current) use of oral hypoglycemic drugs; Z79.890 Hormone replacement therapy; Z79.899 Other long term (current) drug therapy; E11.9 Type 2 diabetes mellitus without complications; E03.9 Hypothyroidism, unspecified; B95.8 Unspecified staphylococcus as the cause of diseases classified elsewhere
CPT/HCPCS: 36415; 80048; 82947; 83605; 84484; 85025; 87040; 99285; J0696; J2405; J3370

== ENCOUNTER 2021-04-20 20:46 | Inpatient (IN) | payer OTHER, SELFPAY ==
--- NOTE | ~2021-04-20 | XR_ITS ---
EXAMINATION: XR CHEST CLINICAL INFORMATION: Cough, weakness COMPARISON: 04/04/2021 TECHNIQUE: Frontal view of the chest was obtained. FINDINGS: Patchy areas of opacity right midlung, right base, left midlung and left base consistent with areas of infiltrate. No effusion. Mediastinal contours within normal limits. XR/XR chest 1V IMPRESSION: Bilateral patchy infiltrates
[2021-04-20 21:17] VITALS: BP 135/80; PULSE 57; RESP 16; TEMP 37; O2SAT 93; BMI 26.6
--- NOTE | 2021-04-20 22:23 | PC.NURSE ---
COVID swab obtained and sent to lab for analysis. Awaiting results.
--- NOTE | 2021-04-20 22:25 | ED.GENADULT ---
HPI - General Adult General Chief complaint: General Medical Stated complaint: weakness Time Seen by Provider: 04/20/21 22:13 Source: patient and family Mode of arrival: EMS Limitations: no limitations History of Present Illness HPI narrative: patient comes emergency room complaining of weakness. Patient states that she tested positive for COVID 1 month ago. Patient was discharged from the hospital on April 06 after being admitted for acute kidney injury. The grandmother reports that since she was discharged from the hospital, the patient has been very weak, not eating anything solid, only drinking milk and fluids. Patient states that she does not feel hungry, constantly has nausea. Patient denies fever or chills Related Data Home Medications Medication Instructions Recorded Confirmed benzonatate 100 mg PO QID PRN 04/05/21 04/05/21 budesonide 0.5 mg INHALATION BEDTIME 04/05/21 04/05/21 gabapentin 100 mg PO DAILY 04/05/21 04/05/21 glipizide 5 mg PO DAILY 04/05/21 04/05/21 levothyroxine 25 mcg PO DAILY 04/05/21 04/05/21 melatonin 3 mg PO BEDTIME 04/05/21 04/05/21 olmesartan 20 mg PO DAILY 04/05/21 04/05/21 omeprazole 40 mg PO DAILY 04/05/21 04/05/21 revefenacin 175 mcg INHALATION DAILY 04/05/21 04/05/21 simvastatin 40 mg PO BEDTIME 04/05/21 04/05/21 Previous Rx's Medication Instructions Recorded cefuroxime axetil 250 mg PO BID #10 tab 04/06/21 Allergies Allergy/AdvReac Type Severity Reaction Status Date / Time No Known Allergies Allergy Verified 04/05/21 12:31 [No Known Allergies*] Review of Systems Review of Systems: Constitutional : granddaughter suspects weight loss, No Fever, No Chills, No Night Sweats, No Fatigue, No Malaise ENT/Mouth : No Hearing loss, No Ear Pain, No Nasal Congestion, No Sinus Pain, No Hoarseness, No sore throat, No Rhinorrhea, No Swallowing Difficulty Eyes: No Eye Pain, No Swelling, No Redness, No Foreign Body, No Discharge, No Vision Changes Cardiovascular : No Chest Pain, No SOB, No Dyspnea on Exertion, No Orthopnea, No Edema, No Palpitations Respiratory : No Cough, No Sputum, No Wheezing, No Smoke Exposure, No Dyspnea Gastrointestinal : complaining of nausea with no Vomiting, No Diarrhea, No Constipation, No abdominal Pain, No Hematochezia, No Melena, patient states that she has decreased p.o. intake Genitourinary : no irregular bleeding, No Dysuria, No Urinary Frequency, No Hematuria, No Urinary Incontinence, No Urgency, No Flank Pain, No Urinary Flow Changes, No Hesitancy Musculoskeletal : No joint pain, No Myalgias, No Joint Swelling Skin : No Skin Lesions, No rash Neuro : No Weakness, No Numbness, No Paresthesias, No Loss of Consciousness, No Dizziness, No Headache Psych : No Anxiety/Panic, No Depression, No SI/HI/AH/VH, No Social Issues, Heme/Lymph: No Bruising, No Bleeding,No Lymphadenopathy Endocrine : No Polyuria, No Polydipsia, No Temperature Intolerance PMFSH Past Medical History Medical History Asthma Calcification of lung Diabetes Social History Social History (Updated 04/05/21 @ 17:33 by RAFY Wright) Unable to assess alcohol history related to: Unknown Alcohol intake: unknown Patient Tobacco Use Status: Former Tobacco user Advance Directives: No Advance Directives Information Provided: Yes Physical Exam Vital Signs: Vital Signs: Last Vital Signs Temp 98.6 F 04/20/21 21:17 Pulse 57 04/20/21 21:17 Resp 16 04/20/21 21:17 BP 135/80 04/20/21 21:17 Pulse Ox 93 04/20/21 21:17 Body Mass Index 26.6 Appearance: Alert. Oriented X3. No acute distress. Eyes: Pupils equal, round and reactive to light. ENT: Pharynx normal. Neck: Normal inspection. Neck supple. No lymph nodes noted. No crepitus CVS: Normal heart rate and rhythm. Pulses normal. Normal S1 and S2 Respiratory: No respiratory distress. Breath sounds normal. No Wheezing. No rales Abdomen: Soft , seems diffusely tender to palpation. No rigidity. No distention. good BS x4 Skin: Skin warm and dry. Normal skin color. Normal skin turgor. Extremities: No lower extremity edema. No lower extremity edema. No Lacerations. No Rash Neuro: Oriented X 3. No motor deficit. No sensory deficit. Moving all extermities. No slurred speech. Course Course Course Narrative: I discussed with the patient and her granddaughter that the patient has a UTI and hypercalcemia and is developing pneumonia patient will be admitted to the hospital. Patient and granddaughter agree with plan. I discussed the patient with Dr. Jones, patient being admitted. Lactilc acid pending, vitals stable, BP 135/80, sepsis is not suspected Medical Decision Making Lab Data Result diagrams: 04/20/21 22:44 04/20/21 22:44 Labs: Lab Results 04/20/21 04/20/21 04/20/21 Range/Units 22:07 22:44 22:44 WBC 11.5 H (4.8-10.8) X10*3/uL RBC 4.31 (4.20-5.50) X10*6/uL Hgb 12.9 (12.0-16.0) g/dl Hct 38.8 (37-47) % MCV 90.0 (80-98) fL MCH 29.9 (27.0-33.0) pg MCHC 33.2 (31.0-35.0) g/dl RDW 14.7 (11.0-16.0) % Plt Count 453 H D (160-400) X10*3/uL MPV 9.5 (9.4-12.3) fL Immature Gran % (Auto) 3.2 H (0.0-0.4) % Neut % (Auto) 61.5 (45-73) % Lymph % (Auto) 25.1 (20-40) % [place] % (Auto) 9.2 (2-11) % Eos % (Auto) 0.5 (0-4) % Baso % (Auto) 0.5 (0-2) % Lymph # (Auto) 2.9 (1.2-4.9) X10*3/uL [place] # (Auto) 1.1 (0.1-1.2) X10*3/uL Eos # (Auto) 0.1 (0.0-0.4) X10*3/uL Baso # (Auto) 0.1 (0.0-0.2) X10*3/uL Abs Immat Gran (auto) 0.37 H (0.00-0.03) X10*3/uL Absolute Neuts (auto) 7.1 (2.0-8.3) X10*3/uL Absolute Nucleated RBC 0.000 (0.0-0.012) X10*3/uL Nucleated RBC % (auto) 0.0 (0.0-0.2) /100WBC PT (10.8-13.0) SEC INR (0.9-1.1) Sodium 138 (135-145) mmol/L Potassium 4.8 (3.3-5.1) mmol/L Chloride 102 (96-108) mmol/L Carbon Dioxide 26 (22-29) mmol/L Anion Gap 15 (12-20) BUN 36 H D (9-16) mg/dL Creatinine 1.29 (0.5-1.4) mg/dL Estim Creat Clear Calc 26.0 Estimated GFR 39 Random Glucose 163 H (60-115) mg/dL Calcium 12.5 H* D (8.4-10.2) mg/dL Total Bilirubin 0.4 (0.0-1.0) mg/dL Direct Bilirubin 0.3 (0.0-0.5) mg/dL AST 31 (5-31) U/L ALT 18 (0-31) U/L Alkaline Phosphatase 49 D (39-117) U/L Troponin I High Sens (<3.5-17.0) ng/L Total Protein 7.9 (6.5-8.0) g/dL Albumin 3.9 (3.5-5.0) g/dL Lipase (8-78) U/L Urine Color Urine Appearance Urine pH (5.0-8.0) Ur Specific [place] (1.005-1.025) Urine Protein (NEG-TRACE) MG/DL Urine Glucose (UA) (NEG) MG/DL Urine Ketones (NEG) MG/DL Urine Blood (NEG) Urine Nitrite (NEG) Ur Leukocyte Esterase (NEG) Urine RBC (0) /HPF Urine WBC (0-4) /HPF Ur Squamous Epith Cells /LPF Urine Bacteria /LPF COVID-19 ([facility]ONIA) Negative (Negative) COVID-19 Clin Com See Note 04/20/21 04/20/21 04/20/21 Range/Units 22:44 22:44 22:44 WBC (4.8-10.8) X10*3/uL RBC (4.20-5.50) X10*6/uL Hgb (12.0-16.0) g/dl Hct (37-47) % MCV (80-98) fL MCH (27.0-33.0) pg MCHC (31.0-35.0) g/dl RDW (11.0-16.0) % Plt Count (160-400) X10*3/uL MPV (9.4-12.3) fL Immature Gran % (Auto) (0.0-0.4) % Neut % (Auto) (45-73) % Lymph % (Auto) (20-40) % [place] % (Auto) (2-11) % Eos % (Auto) (0-4) % Baso % (Auto) (0-2) % Lymph # (Auto) (1.2-4.9) X10*3/uL [place] # (Auto) (0.1-1.2) X10*3/uL Eos # (Auto) (0.0-0.4) X10*3/uL Baso # (Auto) (0.0-0.2) X10*3/uL Abs Immat Gran (auto) (0.00-0.03) X10*3/uL Absolute Neuts (auto) (2.0-8.3) X10*3/uL Absolute Nucleated RBC (0.0-0.012) X10*3/uL Nucleated RBC % (auto) (0.0-0.2) /100WBC PT 14.0 H (10.8-13.0) SEC INR 1.2 H (0.9-1.1) Sodium (135-145) mmol/L Potassium (3.3-5.1) mmol/L Chloride (96-108) mmol/L Carbon Dioxide (22-29) mmol/L Anion Gap (12-20) BUN (9-16) mg/dL Creatinine (0.5-1.4) mg/dL Estim Creat Clear Calc Estimated GFR Random Glucose (60-115) mg/dL Calcium (8.4-10.2) mg/dL Total Bilirubin (0.0-1.0) mg/dL Direct Bilirubin (0.0-0.5) mg/dL AST (5-31) U/L ALT (0-31) U/L Alkaline Phosphatase (39-117) U/L Troponin I High Sens 10.6 (<3.5-17.0) ng/L Total Protein (6.5-8.0) g/dL Albumin (3.5-5.0) g/dL Lipase 22 (8-78) U/L Urine Color Urine Appearance Urine pH (5.0-8.0) Ur Specific [place] (1.005-1.025) Urine Protein (NEG-TRACE) MG/DL Urine Glucose (UA) (NEG) MG/DL Urine Ketones (NEG) MG/DL Urine Blood (NEG) Urine Nitrite (NEG) Ur Leukocyte Esterase (NEG) Urine RBC (0) /HPF Urine WBC (0-4) /HPF Ur Squamous Epith Cells /LPF Urine Bacteria /LPF COVID-19 ([facility]ONIA) (Negative) COVID-19 Clin Com 04/20/21 Range/Units 23:43 WBC (4.8-10.8) X10*3/uL RBC (4.20-5.50) X10*6/uL Hgb (12.0-16.0) g/dl Hct (37-47) % MCV (80-98) fL MCH (27.0-33.0) pg MCHC (31.0-35.0) g/dl RDW (11.0-16.0) % Plt Count (160-400) X10*3/uL MPV (9.4-12.3) fL Immature Gran % (Auto) (0.0-0.4) % Neut % (Auto) (45-73) % Lymph % (Auto) (20-40) % [place] % (Auto) (2-11) % Eos % (Auto) (0-4) % Baso % (Auto) (0-2) % Lymph # (Auto) (1.2-4.9) X10*3/uL [place] # (Auto) (0.1-1.2) X10*3/uL Eos # (Auto) (0.0-0.4) X10*3/uL Baso # (Auto) (0.0-0.2) X10*3/uL Abs Immat Gran (auto) (0.00-0.03) X10*3/uL Absolute Neuts (auto) (2.0-8.3) X10*3/uL Absolute Nucleated RBC (0.0-0.012) X10*3/uL Nucleated RBC % (auto) (0.0-0.2) /100WBC PT (10.8-13.0) SEC INR (0.9-1.1) Sodium (135-145) mmol/L Potassium (3.3-5.1) mmol/L Chloride (96-108) mmol/L Carbon Dioxide (22-29) mmol/L Anion Gap (12-20) BUN (9-16) mg/dL Creatinine (0.5-1.4) mg/dL Estim Creat Clear Calc Estimated GFR Random Glucose (60-115) mg/dL Calcium (8.4-10.2) mg/dL Total Bilirubin (0.0-1.0) mg/dL Direct Bilirubin (0.0-0.5) mg/dL AST (5-31) U/L ALT (0-31) U/L Alkaline Phosphatase (39-117) U/L Troponin I High Sens (<3.5-17.0) ng/L Total Protein (6.5-8.0) g/dL Albumin (3.5-5.0) g/dL Lipase (8-78) U/L Urine Color YELLOW Urine Appearance HAZY Urine pH 6.0 (5.0-8.0) Ur Specific [place] 1.020 (1.005-1.025) Urine Protein 2+ H (NEG-TRACE) MG/DL Urine Glucose (UA) NEG (NEG) MG/DL Urine Ketones NEG (NEG) MG/DL Urine Blood TRACE (NEG) Urine Nitrite NEG (NEG) Ur Leukocyte Esterase 3+ H (NEG) Urine RBC 5-9 H (0) /HPF Urine WBC 50-75 H (0-4) /HPF Ur Squamous Epith Cells 2+ /LPF Urine Bacteria 3+ /LPF COVID-19 ([facility]) (Negative) COVID-19 Clin Com ECG Data Attestation: I personally reviewed and interpreted this ECG as follows: ( sinus rhythm, first-degree AV block, heart rate 86, no ST segment depression or elevation, no T-wave inversion, QTC 418) Critical Care Time Critical Care Time Total Critical Care Time: 60 Discharge Plan Discharge Clinical Impression: Pneumonia, Acute UTI, Hypercalcemia, Adult failure to thrive Patient Disposition: Admitted As Inpatient
--- NOTE | 2021-04-20 22:28 | ECG_ITS ---
Test Reason : WEAKNESS Blood Pressure : / mmHG Vent. Rate : 086 BPM Atrial Rate : 086 BPM P-R Int : 218 ms QRS Dur : 106 ms QT Int : 350 ms P-R-T Axes : 048 -46 043 degrees QTc Int : 418 ms Sinus rhythm with 1st degree A-V block Left anterior fascicular block Abnormal ECG When compared with ECG of 04-SEP-2019 20:39, Premature atrial complexes are no longer Present ST no longer depressed in Lateral leads Referred By: Kayla Flores Electronically Signed By:Gregory Barrera
[2021-04-20 22:35] LABS: COVID-19 Test Negative (Negative); IDNOW Serial# 9DD0AD1C
[2021-04-20 22:56] LABS: INTERNATIONAL NORM RATIO 1.2 (0.9-1.1)
[2021-04-20 22:57] LABS: MANUAL DIFF FLAG NO
[2021-04-20 22:58] LABS: Basophils Absolute Auto 0.1 X10*3/uL (0.0-0.2); Basophils Percent Auto 0.5 % (0-2); Eosinophils Absolute Auto 0.1 X10*3/uL (0.0-0.4); Eosinophils Percent Auto 0.5 % (0-4); Hematocrit 38.8 % (37-47); Hemoglobin 12.9 g/dl (12.0-16.0); Imm Gran Abs Auto 0.37 X10*3/uL (0.00-0.03); Imm Gran Pct Auto 3.2 % (0.0-0.4); Lymphocytes Absolute Auto 2.9 X10*3/uL (1.2-4.9); Lymphocytes Percent Auto 25.1 % (20-40); Mean Corpuscular HGB Conc 33.2 g/dl (31.0-35.0); Mean Corpuscular Hemoglobin 29.9 pg (27.0-33.0); Mean Platelet Volume 9.5 fL (9.4-12.3); Monocytes Absolute Auto 1.1 X10*3/uL (0.1-1.2); Monocytes Percent Auto 9.2 % (2-11); Neutrophils Absolute Auto 7.1 X10*3/uL (2.0-8.3); Neutrophils Percent Auto 61.5 % (45-73); Platelet Count 453 X10*3/uL (160-400); Red Blood Count 4.31 X10*6/uL (4.20-5.50); Red Cell Distribution Width 14.7 % (11.0-16.0); White Blood Count 11.5 X10*3/uL (4.8-10.8)
[2021-04-20 23:13] LABS: Lipase 22 U/L (8-78)
[2021-04-20 23:19] LABS: Alanine Aminotransferase 18 U/L (0-31); Albumin Level 3.9 g/dL (3.5-5.0); Alkaline Phosphatase 49 U/L (39-117); Anion Gap 15 (12-20); Aspartate Amino Transferase 31 U/L (5-31); Bilirubin Direct 0.3 mg/dL (0.0-0.5); Bilirubin Total 0.4 mg/dL (0.0-1.0); Blood Urea Nitrogen 36 mg/dL (9-16); Calcium 12.5 mg/dL (8.4-10.2); Carbon Dioxide 26 mmol/L (22-29); Chloride 102 mmol/L (96-108); Estimated Glomerular Filt Rate 39; Glucose Random 163 mg/dL (60-115); Potassium 4.8 mmol/L (3.3-5.1); Sodium 138 mmol/L (135-145); Total Protein 7.9 g/dL (6.5-8.0)
[2021-04-20 23:35] LABS: Troponin-I High Sensitivity 10.6 ng/L (<3.5-17.0)
[2021-04-20 23:49] LABS: Glucose Urine UA NEG (NEG); Leukocyte Esterase Urine 3+ (NEG); Nitrite Urine NEG (NEG); UACC Culture Trigger YES; Urine Blood TRACE (NEG); Urine Ketones NEG (NEG); Urine Protein 2+ MG/DL (NEG-TRACE)
[2021-04-20 23:55] LABS: Appearance Urine HAZY; Color Urine YELLOW
[2021-04-21] MEDS: 0.9 % Sodium Chloride 1,000 ML 999 ML IVCONT ×2 (00:02→01:29)
[2021-04-21 00:09] LABS: Bacteria Urine 3+ /LPF; Squamous Epithelial Cell Urine 2+ /LPF; WBC Urine 50-75 /HPF (0-4)
--- NOTE | 2021-04-21 00:45 | P.HPHOSP_ITS ---
History of Present Illness Date of Service: 04/21/21 Chief Complaint: Gen weakness 81-year-old female with a past medical history of hypertension, diabetes, hypothyroidism, recent history WON UTI finished antibiotic course, recent history COVID-19 infection; presented to the hospital today with a chief complaint of generalized weakness. As per the family patient been eating and over past 1 week. Has generalized weakness. Denies any falls. Denies any chest pain palpitations. Any numbness tingling weakness. Denies any GI symptoms. Patient denies any difficulty swallowing. Of all other negative except mentioned above ER course: ER noted to have coarse lungs [place] chest x-ray showed infiltrat es urinalysis abnormal consistent UTI. Patient Levaquin. Also noted to calcium 0.5. Patient received 2lit normal saline. [facility] Medical History Asthma Calcification of lung Diabetes Social History (Updated 04/05/21 @ 17:33 by RAFY Wright) Household Members: Family Housing: House Do you presently have visiting nurse or other home services: No Unable to assess alcohol history related to: Unknown Alcohol intake: current Alcohol intake frequency: holidays/special occasions only Patient Tobacco Use Status: Former Tobacco user Smoked in Last 30 Days: No Use of substances other than those prescribed or required for medical reasons: No Have you been hit, kicked, punched, or otherwise hurt by someone within the past year? If so, by whom?: No Do you feel safe in your current relationship?: No Current Relationship Is there a partner from a previous relationship who is making you feel unsafe now?: No Are you made to feel afraid or neglected: No Advance Directives: No Advance Directives Information Provided: Yes Do you have thoughts of harming others: None Do you have a plan to hurt others: No Plan Recently lost weight without trying: No Eating poorly because of decreased appetite: No Nutrition Risks: Poor intake 0-25% >4 days Patient : No : No Poor oral hygiene: No service: No Current occupational status: unemployed and retired Meds Allergies Allergy/AdvReac Type Severity Reaction Status Date / Time No Known Allergies Allergy Verified 04/21/21 17:46 [No Known Allergies*] Active Medications: Current Medications Generic Name Dose Route Start Last Admin Trade Name Freq PRN Reason Stop Dose Admin Sodium Chloride 1,000 mls @ 999 mls/hr 04/21/21 00:28 Ns IVCONT 04/21/21 01:28 .Q1H1M ONE Levofloxacin 500 mg in 100 mls @ 100 mls/hr 04/21/21 00:30 Levaquin IV 04/21/21 01:29 ONCE ONE Home Medications Medication Instructions Recorded Confirmed Last Taken Type benzonatate 100 mg PO QID PRN 04/05/21 04/21/21 04/20/21 History budesonide 0.5 mg INHALATION BEDTIME 04/05/21 04/21/21 04/20/21 History gabapentin 100 mg PO DAILY 04/05/21 04/21/21 04/20/21 History glipizide 5 mg PO DAILY 04/05/21 04/21/21 04/20/21 History levothyroxine 25 mcg PO DAILY 04/05/21 04/21/21 04/20/21 History melatonin 3 mg PO BEDTIME 04/05/21 04/21/21 04/20/21 History olmesartan 20 mg PO DAILY 04/05/21 04/21/21 04/20/21 History omeprazole 40 mg PO DAILY 04/05/21 04/21/21 04/20/21 History revefenacin 175 mcg INHALATION DAILY 04/05/21 04/21/21 04/20/21 History simvastatin 40 mg PO BEDTIME 04/05/21 04/21/21 04/20/21 History Physical Exam Vital Signs and Narrative: Vital Signs: Last Vital Signs Temp 98.6 F 04/20/21 21:17 Pulse 57 04/20/21 21:17 Resp 16 04/20/21 21:17 BP 135/80 04/20/21 21:17 Pulse Ox 93 04/20/21 21:17 Body Mass Index 26.6 Gen: Appears be in no acute distress HEENT: NCAT, Moist mucosa. Pulmonary: coarse breath sounds, fair air entry CVS: Normal S1-S2 Abdomen: BS+, Soft, Nontender Extremities: Warm well perfused Neuro: Alert and awake. Results Labs CBC and Chem 7: 04/21/21 06:42 04/21/21 06:42 Labs: Laboratory Results - last 24 hr 04/20/21 04/20/21 04/20/21 22:07 22:44 22:44 MCV 90.0 MCH 29.9 MCHC 33.2 RDW 14.7 Plt Count 453 H D MPV 9.5 Immature Gran % (Auto) 3.2 H Neut % (Auto) 61.5 Lymph % (Auto) 25.1 [place] % (Auto) 9.2 Eos % (Auto) 0.5 Baso % (Auto) 0.5 Lymph # (Auto) 2.9 [place] # (Auto) 1.1 Eos # (Auto) 0.1 Baso # (Auto) 0.1 Abs Immat Gran (auto) 0.37 H Absolute Neuts (auto) 7.1 Absolute Nucleated RBC 0.000 Nucleated RBC % (auto) 0.0 PT INR Anion Gap 15 Estim Creat Clear Calc 26.0 Estimated GFR 39 Random Glucose 163 H Calcium 12.5 H* D Total Bilirubin 0.4 Direct Bilirubin 0.3 AST 31 ALT 18 Alkaline Phosphatase 49 D Troponin I High Sens Total Protein 7.9 Albumin 3.9 Lipase Urine Color Urine Appearance Urine pH Ur Specific [place] Urine Protein Urine Glucose (UA) Urine Ketones Urine Blood Urine Nitrite Ur Leukocyte Esterase Urine RBC Urine WBC Ur Squamous Epith Cells Urine Bacteria COVID-19 ([facility]) Negative COVID-19 Clin Com See Note 04/20/21 04/20/21 04/20/21 22:44 22:44 22:44 MCV MCH MCHC RDW Plt Count MPV Immature Gran % (Auto) Neut % (Auto) Lymph % (Auto) [place] % (Auto) Eos % (Auto) Baso % (Auto) Lymph # (Auto) [place] # (Auto) Eos # (Auto) Baso # (Auto) Abs Immat Gran (auto) Absolute Neuts (auto) Absolute Nucleated RBC Nucleated RBC % (auto) PT 14.0 H INR 1.2 H Anion Gap Estim Creat Clear Calc Estimated GFR Random Glucose Calcium Total Bilirubin Direct Bilirubin AST ALT Alkaline Phosphatase Troponin I High Sens 10.6 Total Protein Albumin Lipase 22 Urine Color Urine Appearance Urine pH Ur Specific [place] Urine Protein Urine Glucose (UA) Urine Ketones Urine Blood Urine Nitrite Ur Leukocyte Esterase Urine RBC Urine WBC Ur Squamous Epith Cells Urine Bacteria COVID-19 ([facility]) COVID-19 Clin Com 04/20/21 23:43 MCV MCH MCHC RDW Plt Count MPV Immature Gran % (Auto) Neut % (Auto) Lymph % (Auto) [place] % (Auto) Eos % (Auto) Baso % (Auto) Lymph # (Auto) [place] # (Auto) Eos # (Auto) Baso # (Auto) Abs Immat Gran (auto) Absolute Neuts (auto) Absolute Nucleated RBC Nucleated RBC % (auto) PT INR Anion Gap Estim Creat Clear Calc Estimated GFR Random Glucose Calcium Total Bilirubin Direct Bilirubin AST ALT Alkaline Phosphatase Troponin I High Sens Total Protein Albumin Lipase Urine Color YELLOW Urine Appearance HAZY Urine pH 6.0 Ur Specific [place] 1.020 Urine Protein 2+ H Urine Glucose (UA) NEG Urine Ketones NEG Urine Blood TRACE Urine Nitrite NEG Ur Leukocyte Esterase 3+ H Urine RBC 5-9 H Urine WBC 50-75 H Ur Squamous Epith Cells 2+ Urine Bacteria 3+ COVID-19 ([facility]) COVID-19 Clin Com Imaging Radiologist's Impressions: Impressions Chest X-Ray 04/20/21 22:29 IMPRESSION: Bilateral patchy infiltrates Assessment and Plan (1) Pneumonia: Status: Acute 81-year-old female with past medical history hypertension, diabetes, hypothyroidism, recent history of WON/ UTI presented to with a generalized weakness and oral intake Adult to failure to thrive: Likely in in the setting infection. Supportive care. Nutrition consult. Speech And swallow eval. UTI/pneumonia: Continue Levaquin. Follow up cultures. Hypercalcemia: patient received 2 L of normal saline in the ER. Will repeat calcium if elevated above 12, will consider Intra nasal calcitonin. otherwise Continue gentle fluids. diabetes: Insulin sliding scale all other chronic conditions, home medications will be continued DVT: SCD boots Code status: Full code Quality Stroke Does the patient have a stroke diagnosis?: No VTE Prior VTE?: No VTE Risk Level:: Medical - moderate - high VTE Device Contraindication: N/A - Device Ordered VTE Drug Contraindication: N/A - Med Ordered
[2021-04-21 00:52] VITALS: BP 118/67; PULSE 72; RESP 18; TEMP 37.2; O2SAT 96
[2021-04-21] MEDS: levoFLOXacin/D5W 500 MG/100 ML PIGGYBACK 100 MG IV (01:28)
[2021-04-21 01:56] LABS: Lactic Acid 1.7 mmol/L (0.5-2.0)
[2021-04-21 02:08] LABS: Anion Gap 14 (12-20); Blood Urea Nitrogen 33 mg/dL (9-16); Calcium 11.1 mg/dL (8.4-10.2); Carbon Dioxide 21 mmol/L (22-29); Chloride 108 mmol/L (96-108); Creatinine Clr Calc Pharmacy 31.3; Estimated Glomerular Filt Rate 49; Glucose Random 142 mg/dL (60-115); Sodium 138 mmol/L (135-145)
[2021-04-21] MEDS: Enoxaparin Sodium 30 MG/0.3 ML SYRINGE SUBCUT ×2 (03:26→21:34)
[2021-04-21] MEDS: Melatonin 3 MG TABLET 6 MG PO ×2 (03:26→21:34)
[2021-04-21] MEDS: 0.9 % Sodium Chloride 1,000 ML 75 ML IVCONT ×3 (03:26→21:34)
[2021-04-21 07:01] LABS: MANUAL DIFF FLAG NO
[2021-04-21 07:03] LABS: Basophils Absolute Auto 0.1 X10*3/uL (0.0-0.2); Basophils Percent Auto 0.6 % (0-2); Eosinophils Absolute Auto 0.1 X10*3/uL (0.0-0.4); Eosinophils Percent Auto 0.8 % (0-4); Imm Gran Abs Auto 0.33 X10*3/uL (0.00-0.03); Imm Gran Pct Auto 3.5 % (0.0-0.4); Lymphocytes Absolute Auto 2.5 X10*3/uL (1.2-4.9); Mean Corpuscular HGB Conc 32.4 g/dl (31.0-35.0); Mean Corpuscular Hemoglobin 29.2 pg (27.0-33.0); Mean Corpuscular Volume 90.2 fL (80-98); Mean Platelet Volume 9.4 fL (9.4-12.3); Neutrophils Absolute Auto 5.6 X10*3/uL (2.0-8.3); Neutrophils Percent Auto 59.1 % (45-73); Platelet Count 427 X10*3/uL (160-400); Red Blood Count 3.77 X10*6/uL (4.20-5.50); Red Cell Distribution Width 14.8 % (11.0-16.0); White Blood Count 9.5 X10*3/uL (4.8-10.8)
[2021-04-21 07:23] LABS: Anion Gap 13 (12-20); Blood Urea Nitrogen 28 mg/dL (9-16); Carbon Dioxide 23 mmol/L (22-29); Chloride 109 mmol/L (96-108); Estimated Glomerular Filt Rate 48; Glucose Random 166 mg/dL (60-115); Potassium 4.6 mmol/L (3.3-5.1); Sodium 140 mmol/L (135-145)
[2021-04-21 07:31] VITALS: BP 126/73; PULSE 93; RESP 14; TEMP 36.7; O2SAT 94
[2021-04-21 07:40] LABS: Glucose, Whole Blood 188 mg/dL (60-115)
--- NOTE | 2021-04-21 08:06 | PC.NURSE ---
per pt's grand daughter at bedside, pt had coffee and some juice for breakfast. pt a/o x 2,pt did not know the year. lungs - cta. speaks in full sentences.
[2021-04-21] MEDS: Insulin Lispro 100 UNIT/ML 3 ML VIAL SUBCUT (08:20)
[2021-04-21] MEDS: 0.9 % Sodium Chloride Flush 3 ML SYRINGE IVFLUSH (08:31)
--- NOTE | 2021-04-21 10:09 | PM.EVENT ---
Event Note Date of Service: 04/21/21 Event Note: I saw and examined the patient, I reviewed labs, I reconciled meds, I reviewed admission notes and ordered and discussed plan of care with patient and granddaughter at bedside. Will continue IV Abx for PNA and UTI and if doing better by tomorrow, can be discharged.
--- NOTE | 2021-04-21 11:06 | PC.NURSE ---
Blood cultures flagging upon this RN assuming care- immediately drawn and sent to lab.
[2021-04-21] MEDS: ondansetron HCL 4 MG/2 ML VIAL IVPUSH (11:29)
[2021-04-21 11:56] LABS: Glucose, Whole Blood 103 mg/dL (60-115)
--- NOTE | 2021-04-21 13:21 | PC.NURSE ---
Pt up to use bathroom with assistance from family member- ambulates with steady gait. linen changed. Denies further needs or complaints
--- NOTE | 2021-04-21 16:33 | MHC.CM.PN ---
CM MET WITH PT AND GRAND DAUGHTER WHO WAS AT BEDSIDE. PTS GRAND DAUGHTER IS BILINGUAL, HOWEVER PT IS LAO SPEAKING ONLY THEREFORE AN TOXICOLOGIST WAS PRESENT FOR INTERVIEW. CM INFORMED THE PT IS HERE ON VACATION AND WAS SUPPOSED TO RETURN TO [place] ALREADY HOWEVER SHE BECAME ILL AND HAS BEEN UNABLE TO MAKE THE TRIP. WHILE HERE, SHE IS STAYING WITH HER TWO ADULT DAUGHTERS WHO ARE PROVIDING HER ASSISTANCE, IN [place], SHE LIVES WITH HER ADULT SON WHO SHE ALSO REPORTS IS HER HCP. PT DENIES USING ANY DME AND REPORTS HER SON IS HER ONLY ASSISTANCE AT HOME. PT REPORTS SHE HAS A PCP IN [place] THAT SHE SEES ON A REGULAR BASIS, SHE DID NOT HAVE THE NAME. CURRENT DC PLAN IS TO HER DAUGHTERS HOME VIA FAMILY TRANSPORT
[2021-04-21 16:46] LABS: Glucose, Whole Blood 116 mg/dL (60-115)
--- NOTE | 2021-04-21 17:10 | PC.NURSE ---
ATTEMPTED TO CALL REPORT, NURSE UNAVAILABLE
[2021-04-21 17:38] VITALS: BP 152/74; PULSE 91; RESP 19; TEMP 36.7; O2SAT 95
--- NOTE | 2021-04-21 17:39 | PC.NURSE ---
No cardiac cath lab technologist needed.Verified with Dr Avila.
[2021-04-21 19:33] VITALS: BP 130/67; PULSE 80; RESP 19; TEMP 36.4; O2SAT 97
[2021-04-21 20:22] LABS: Glucose, Whole Blood 108 mg/dL (60-115)
[2021-04-21] MEDS: Atorvastatin Calcium 20 MG TABLET PO (21:34)
[2021-04-21] MEDS: levoFLOXacin/D5W 250 MG/50 ML PIGGYBACK 100 MG IV (21:35)
[2021-04-21 23:49] VITALS: BP 155/78; PULSE 88; RESP 18; TEMP 36.5; O2SAT 95
[2021-04-22] VITALS (7 sets, daily range): BP systolic 114–163; BP diastolic 62–76; PULSE 75–97; RESP 16–18; TEMP 36–36.6; O2SAT 94–98
[2021-04-22 07:51] LABS: Glucose, Whole Blood 132 mg/dL (60-115)
[2021-04-22] MEDS: Levothyroxine Sodium 25 MCG TABLET PO (09:25)
[2021-04-22] MEDS: glipiZIDE 5 MG TABLET PO (09:25)
[2021-04-22] MEDS: Gabapentin 100 MG CAPSULE PO (09:25)
[2021-04-22] MEDS: Valsartan 80 MG TABLET PO (09:25)
[2021-04-22 11:26] LABS: Glucose, Whole Blood 173 mg/dL (60-115)
[2021-04-22] MEDS: 0.9 % Sodium Chloride 1,000 ML 75 ML IVCONT (11:49)
[2021-04-22] MEDS: Insulin Lispro 100 UNIT/ML 3 ML VIAL SUBCUT (11:49)
--- NOTE | 2021-04-22 12:09 | MHC.CLN ---
NUTRITION CONSULT REGARDING FAILURE TO THRIVE INFORMATION OBTAINED FROM PATIENT'S DAUGHTER. PATIENT LIVES WITH DAUGHTER. HAS BEEN TAKING MOSTLY LIQUIDS WITH RECENT ILLNESS. PER MD NOTE FAILURE TO THRIVE LIKELY IN THE SETTING OF INFECTION (DX UTI AND PNEUMONIA). DAUGHTER STATED THAT PATIENT'S MEMORY IS FAILING. RD TO LIBERALIZE DIET BASED ON INTAKE LESS THAN 50% OF ESTIMATED ENERGY NEEDS X AT LEAST 5 DAYS. UNABLE TO ASSESS FOR WEIGHT LOSS. PATIENT TAKES SMALL AMOUNT OF ENSURE SUPPLEMENT AT HOME. WILL ADD ENSURE 240 CC TWO TIMES DAILY TO PROVIDES 700 KCAL AND 40 G PROTEIN. PATIENT SEEN BY STORE [facility] WITH RECOMMENDATION FOR REGULAR CONSISTENCY DIET.
--- NOTE | 2021-04-22 12:37 | MHC.CM.PN ---
EMR REVIEWED, CM MET W/PT AND GDTR IN ROOM, PER HOSPITALIST PT WILL REMAIN INPT 1-2 MORE DAYS FOR IV ABX, PT WILL D/C TO GDTR'S HOME AND SHE WILL PROVIDE CARE UNTIL PT RETURNS TO [place]. D/C HOME W/FAMILY SUPPORT, FAMILY TO TRANSPORT.
--- NOTE | 2021-04-22 13:17 | MHC.SL.SWA ---
Speech Pathologist Impression: Within Functional Limits Risk of Aspiration Due to: History of Pneumonia Poor PO Intake Dysphasia Diet Status: No Change Liquid Consistency and Strategies for Safe Swallow: Liquid Intake Recommendation: Thin Liquid Intake Strategies: Unrestricted Solid Food Consistency: Dietary Recommendations: Regular Oral Medication Intake: Whole with Liquid Compensatory Strategies and Precautions to be Taken for Safe Swallow: Sitting Upright (90 deg) Small Bites and Sips Alternate Liquids/Solids Rate of Ingestion Change Supervision While Eating and Drinking for Safe Swallow: None Needed Recommendation for Speech: NA:Typical Evaluation Comment: Patient passed bedside dysphagia evaluation. No overt s/s of aspiration with PO trials. Unremarkable oral mech exam. Collaborating Supervising Physician Clinican/Clinical Fellow: No Supervisory Statement: I have reviewed and agree with the student/clinical fellow's documentation: N/A Speech Language Pathologist: Lashay Mazariegos M.A., CCC-DATA ANALYTICS SPECIALIST
[2021-04-22 16:24] LABS: Glucose, Whole Blood 83 mg/dL (60-115)
--- NOTE | 2021-04-22 17:13 | P.PNIM_ITS ---
Subjective Subjective Date of Service: 04/22/21 Interval History: patient resting in bed comfortably Upper Sorbian-speaking only granddaughter at bedside help the interpretation and taking history patient denies any symptoms of cough shortness of breath denies abdominal pain, no nausea, no vomiting, no urinary symptoms, no other acute issues complaining of no appetite and weakness. General no headache , no dizziness no fever chills. CVS no chest pain, no palpitation. Respiratory no cough ,no sob. Gastrointestinal no nausea, no vomiting, no abdominal pain Physical Exam Vital Signs: Vital Signs: Last Vital Signs Temp 98 F 04/22/21 15:02 Pulse 77 04/22/21 15:02 Resp 16 04/22/21 15:02 BP 142/72 H 04/22/21 15:02 Pulse Ox 97 04/22/21 15:02 Body Mass Index 26.6 General patient resting comfortably in no acute distress. Neck is supple no JVD. CVS regular rate rhythm, Respiratory lungs clear to auscultation, no respiratory distress, no wheeze, no rhonchi. Gastrointestinal abdomen soft, nontender, bowel sounds audible, no guarding, no rigidity Neuro nonfocal patient moving all 4 extremity speech clear. Skin no rash psych appropriate affect Objective Data Current Medications Generic Name Dose Route Start Last Admin Trade Name Freq PRN Reason Stop Dose Admin Acetaminophen 650 mg 04/21/21 00:52 Acetaminophen 325 Mg Tablet PO Q6H PRN Pain, Mild (Pain Scale 1-3) Atorvastatin Calcium 20 mg 04/21/21 21:00 04/21/21 21:34 Atorvastatin Calcium 20 Mg Tablet PO 20 mg BEDTIME SARAH Administration Benzonatate 100 mg 04/21/21 10:09 Benzonatate 100 Mg Capsule PO QID PRN Cough Enoxaparin Sodium 30 mg 04/21/21 01:15 04/21/21 21:34 Enoxaparin Sodium 30 Mg/0.3 Ml Syringe SUBCUT 30 mg 2100 SARAH Administration Gabapentin 100 mg 04/21/21 10:15 04/22/21 09:25 Gabapentin 100 Mg Capsule PO 100 mg DAILY SARAH Administration Glipizide 5 mg 04/21/21 10:15 04/22/21 09:25 Glipizide 5 Mg Tablet PO 5 mg DAILY SARAH Administration Levofloxacin 250 mg in 50 mls @ 100 mls/hr 04/21/21 22:00 04/21/21 22:27 Levaquin IV Infused Q24H [facility] Infusion Sodium Chloride 1,000 mls @ 75 mls/hr 04/21/21 01:00 04/22/21 11:49 Ns IVCONT 75 mls/hr .[id number] [facility] Administration Insulin Human Lispro 0 unit 04/21/21 07:30 04/22/21 16:25 Insulin Lispro 100 Unit/Ml 3 Ml Vial SUBCUT Not Given QIDACHS [facility] Protocol Levothyroxine Sodium 25 mcg 04/21/21 10:15 04/22/21 09:25 Levothyroxine Sodium 25 Mcg Tablet PO 25 mcg DAILY [facility] Administration Magnesium Hydroxide 30 ml 04/21/21 00:52 Milk Of Magnesia 30 Ml Oral.Susp PO DAILY PRN Constipation Melatonin 6 mg 04/21/21 00:52 04/21/21 21:34 Melatonin 3 Mg Tablet PO 6 mg BEDTIME PRN Administration Insomnia Non-Formulary Medication 0.5 mg 04/21/21 21:00 Budesonide INHALE BEDTIME [facility] Omeprazole 40 mg 04/21/21 10:15 04/22/21 06:28 Omeprazole 40 Mg Capsule.Dr PO Not Given DAILY@0630 [facility] Ondansetron HCl 4 mg 04/21/21 11:16 04/21/21 11:29 Ondansetron Hcl 4 Mg/2 Ml Vial IVPUSH 4 mg Q6H PRN Administration Nausea Sodium Chloride 3 ml 04/21/21 08:00 04/22/21 14:59 0.9 % Sodium Chloride Flush 3 Ml Syringe IVFLUSH Not Given QSHIFT [facility] Valsartan 80 mg 04/21/21 10:27 04/22/21 09:25 Valsartan 80 Mg Tablet PO 80 mg DAILY [facility] Administration Labs CBC & Chem 7: 04/21/21 06:42 04/21/21 06:42 Labs: Laboratory Results - last 24 hr 04/21/21 04/22/21 04/22/21 20:19 07:17 11:17 POC Glucose 108 132 H 173 H 04/22/21 16:13 POC Glucose 83 Microbiology Microbiology Results: Microbiology 04/21/21 11:03 Blood Culture - Preliminary Blood - Venous No growth after 24 hours. 04/21/21 11:03 Blood Culture - Preliminary Blood - Venous No growth after 24 hours. 04/20/21 Unknown Urine Culture - Preliminary Urine clean catch - Urine maldonado top Gram negative alvaro Quality Stroke Does the patient have a stroke diagnosis?: No VTE Prior VTE?: No VTE Risk Level:: Medical - moderate - high VTE Device Contraindication: N/A - Device Ordered VTE Drug Contraindication: N/A - Med Ordered Assessment and Plan (1) Acute UTI: Status: Acute (2) Hypercalcemia: Status: Acute (3) Adult failure to thrive: Status: Acute (4) Pneumonia: Status: Acute (5) COVID-19: Status: Acute Assessment and Plan: 81-year-old female with past medical history hypertension, diabetes, hypothyroidism, recent history of WON/ UTI presented to with a generalized we akness and oral intake Adult to failure to thrive: patient has poor by mouth intake likely due to no taste and generalized weakness patient recently diagnosed to have COVID for couple weeks ago, likely symptoms related to recent infection, and now noted to have acute UTI, continue supportive care and treat UTI, will add Ensure patient is visiting from [place] and waiting to return back after recuperating from current illness. UTI/pneumonia: chest x-ray showing bilateral pneumonia likely related to recent COVID infection, patient has no symptoms of cough shortness of breath, however on Levaquin for UTI that will cover any component of bacterial pneumonia, urine culture grew Gram-negative alvaro blood cultures x2 remain negative will follow final urine culture report and adjust antibiotics Hypercalcemia: likely due to dehydration, received 2 L of normal saline in the ER, creatinine improved to 11 from 12.5. will DC IV fluid encourage by mouth fluid diabetes: blood sugars stable take glipizide at home , encourage by mouth intake and continue insulin sliding scale. hypothyroidism continue Synthroid will check TSH DVT: SCD boots Code status: Full code
[2021-04-22] MEDS: Enoxaparin Sodium 30 MG/0.3 ML SYRINGE SUBCUT (20:19)
[2021-04-22] MEDS: Atorvastatin Calcium 20 MG TABLET PO (20:19)
[2021-04-22] MEDS: levoFLOXacin/D5W 250 MG/50 ML PIGGYBACK 100 MG IV (20:25)
[2021-04-22 20:26] LABS: Glucose, Whole Blood 74 mg/dL (60-115)
[2021-04-22] MEDS: 0.9 % Sodium Chloride Flush 3 ML SYRINGE IVFLUSH (21:24)
[2021-04-23 04:00] VITALS: BP 134/69; PULSE 80; RESP 18; TEMP 36.1; O2SAT 96
[2021-04-23] MEDS: Omeprazole 40 MG CAPSULE.DR PO (06:36)
[2021-04-23 07:17] LABS: Calcium 10.2 mg/dL (8.4-10.2)
[2021-04-23 07:31] VITALS: BP 140/69; PULSE 85; RESP 17; TEMP 36.1; O2SAT 95
[2021-04-23 07:35] LABS: Thyroid Stimulating Hormone 1.45 uIU/mL (0.32-4.0)
[2021-04-23 07:41] LABS: Glucose, Whole Blood 129 mg/dL (60-115)
[2021-04-23 09:40] VITALS: BP 140/69; PULSE 85
[2021-04-23] MEDS: 0.9 % Sodium Chloride Flush 3 ML SYRINGE IVFLUSH (09:40)
[2021-04-23] MEDS: Gabapentin 100 MG CAPSULE PO (09:40)
[2021-04-23] MEDS: glipiZIDE 5 MG TABLET PO (09:40)
[2021-04-23] MEDS: Valsartan 80 MG TABLET PO (09:40)
[2021-04-23] MEDS: Levothyroxine Sodium 25 MCG TABLET PO (09:40)
[2021-04-23 11:05] VITALS: BP 122/60; PULSE 81; RESP 18; TEMP 36.7; O2SAT 97
[2021-04-23 12:31] LABS: Glucose, Whole Blood 134 mg/dL (60-115)
--- NOTE | 2021-04-23 12:36 | MHC.CM.PN ---
nurse rn critical care note electronic medical record reviewed along with case discussed with staff nurse and hospit;list met with patient and her dagughter , patient will be discharged home today staying with her daughter and some time this week will be going back to p.r as she was visiitng here discharge plan home no services medicare imm updated
--- NOTE | 2021-04-23 12:42 | PM.DS ---
DS: Providers Provider Date of Service: 04/23/21 Date of admission: 04/21/21 00:52 Primary care physician: None Physician DS: Diagnosis Discharge Diagnosis (1) Acute UTI: Status: Acute (2) Hypercalcemia: Status: Acute (3) Adult failure to thrive: Status: Acute (4) Pneumonia: Status: Acute (5) COVID-19: Status: Acute DS: Medications Discharge Medications Home Medications: Home Medications Medication Instructions Recorded Confirmed benzonatate 100 mg PO QID PRN 04/05/21 04/21/21 budesonide 0.5 mg INHALATION BEDTIME 04/05/21 04/21/21 gabapentin 100 mg PO DAILY 04/05/21 04/21/21 glipizide 5 mg PO DAILY 04/05/21 04/21/21 levothyroxine 25 mcg PO DAILY 04/05/21 04/21/21 melatonin 3 mg PO BEDTIME 04/05/21 04/21/21 olmesartan 20 mg PO DAILY 04/05/21 04/21/21 omeprazole 40 mg PO DAILY 04/05/21 04/21/21 revefenacin 175 mcg INHALATION DAILY 04/05/21 04/21/21 simvastatin 40 mg PO BEDTIME 04/05/21 04/21/21 Previous Rx's Medication Instructions Recorded cefuroxime axetil 500 mg PO Q12H #6 tab 04/23/21 DS: Summary Hospital Course Hospital Course: history presenting illness Chief Complaint: Gen weakness 81-year-old female with a past medical history of hypertension, diabetes, hypothyroidism, recent history WON UTI finished antibiotic course, recent history COVID-19 infection; presented to the hospital today with a chief complaint of generalized weakness. As per the family patient been eating and over past 1 week. Has generalized weakness. Denies any falls. Denies any chest pain palpitations. Any numbness tingling weakness. Denies any GI symptoms. Patient denies any difficulty swallowing. Of all other negative except mentioned above history of presenting illness 81-year-old female with past medical history hypertension, diabetes, hypothyroidism, recent history of WON/ UTI presented to with a generalized weakness and poor oral intake patient diagnosed to have Adult to failure to thrive, likely due to recent diagnosis of COVID 19 infection diagnosed couple weeks ago, and due to acute UTI, urine culture grew Klebsiella pneumonia patient treated with IV antibiotic, chest x-ray showed bilateral pneumonia but patient had no shortness of breath, no worsening baseline cough, likely x-ray findings related to COVID infection, since patient is afebrile with normal WBC count and since by mouth intake has improved she is being discharged home with family to finish a total 5 day course of antibiotics, patient TSH is within normal range, blood sugars remain stable. patient has chronic hypercalcemia, initial can stim level is 12.5 patient treated with IV fluid calcium level has improved to normal range, recommend to drink plenty of fluids Time Spent with Patient Time attestation: Total time spent providing and/or coordinating discharge services: Discharge coordination time: Greater than 30 minutes Quality: Stroke Does the patient have a stroke diagnosis?: No Physical Exam Vital Signs: Vital Signs: Last Vital Signs Temp 98.1 F 04/23/21 11:05 Pulse 81 04/23/21 11:05 Resp 18 04/23/21 11:05 BP 122/60 04/23/21 11:05 Pulse Ox 97 04/23/21 11:05 Body Mass Index 26.6 General patient resting comfortably in no acute distress. Neck is supple no JVD. CVS regular rate rhythm, Respiratory lungs clear to auscultation, no respiratory distress, no wheeze, no rhonchi. Gastrointestinal abdomen soft, nontender, bowel sounds audible, no guarding, no rigidity Neuro nonfocal patient moving all 4 extremity speech clear. Skin no rash psych appropriate affect DS: Data Data Completed and Pending Labs on day of discharge: Laboratory Results - last 24 hr 04/22/21 04/22/21 04/23/21 16:13 20:12 06:24 POC Glucose 83 74 Calcium 10.2 D TSH 1.45 04/23/21 04/23/21 07:29 11:04 POC Glucose 129 H 134 H Calcium TSH Preliminary micro results at discharge 04/21/21 11:03 Blood Culture - Preliminary Blood - Venous No growth after 24 hours. 04/21/21 11:03 Blood Culture - Preliminary Blood - Venous No growth after 24 hours. Discharge Plan Discharge Patient Disposition: Home, Self-Care Discharge Diagnosis: UTI/ pneumonia adult failure to thrive hypercalcemia recent COVID-19 infection diabetes Referrals: Physician,None [Primary Care Provider] - 1 Week Discharge Medications: New cefuroxime axetil 500 mg tablet 500 mg PO Q12H Qty: 6 RF: 0 Continued melatonin 3 mg Tablet 3 mg PO BEDTIME RF: 0 omeprazole 40 mg Capsule,Delayed Release(Dr/Ec) 40 mg PO DAILY RF: 0 simvastatin 40 mg Tablet 40 mg PO BEDTIME RF: 0 levothyroxine 25 mcg Tablet 25 mcg PO DAILY RF: 0 benzonatate 100 mg Capsule 100 mg PO QID PRN (Reason: Cough) RF: 0 budesonide 0.5 mg/2 mL Suspension For Nebulization 0.5 mg INHALATION BEDTIME RF: 0 gabapentin 100 mg Capsule 100 mg PO DAILY RF: 0 glipizide 5 mg Tablet 5 mg PO DAILY RF: 0 olmesartan 20 mg Tablet 20 mg PO DAILY RF: 0 revefenacin 175 mcg/3 mL Solution For Nebulization 175 mcg INHALATION DAILY RF: 0 Discharge Orders: Discharge Order (Routine); Ordered 04/23/21 Ordered By: Quentin Craig Diet: diabetic diet Activity on Discharge: As tolerated Stand Alone Forms: Patient Portal Discharge page Care Plan Goals: continue all home medications as above, take Ceftin twice daily for 3 more days for urinary tract infection, you of weakness and loss of taste and appetite due to recent COVID-19 infection Health Concerns: generalized weakness due to recent COVID-19 infection, diet and activity as tolerated Plan of Treatment: close outpatient follow up with PCP Assessment: as above
[2021-04-23] MEDS: cefTRIAXone sodium 1 GM in 0.9 % Sodium Chloride 50 ML IV (13:31)
[2021-04-23 13:56] LABS: COVID-19 Test Negative (Negative)
== END 2021-04-23 14:41 | disposition home or self-care (01) | DRG 689 ==
LOC: HO.ED 04-21 00:33 → HO.EDOVER 04-21 01:04 → HO.IMC 04-21 16:51 → HO.S3 04-21 17:07
PROVIDERS: Internal Medicine; Admitting Provider Hospitalist; Emergency Provider Emergency Medicine; Visit Provider Hospitalist
DX: N39.0 Urinary tract infection, site not specified (principal); J18.9 Pneumonia, unspecified organism; E83.52 Hypercalcemia; R62.7 Adult failure to thrive; Z68.26 Body mass index [BMI] 26.0-26.9, adult; Z86.16 Personal history of COVID-19; E11.9 Type 2 diabetes mellitus without complications; B96.1 Klebsiella pneumoniae [K. pneumoniae] as the cause of diseases classified elsewhere; E86.0 Dehydration; E03.9 Hypothyroidism, unspecified; Z87.440 Personal history of urinary (tract) infections; Z20.822 Contact with and (suspected) exposure to COVID-19; Z87.891 Personal history of nicotine dependence; Z79.84 Long term (current) use of oral hypoglycemic drugs; Z79.890 Hormone replacement therapy; Z79.899 Other long term (current) drug therapy
CPT/HCPCS: 36415; 71045; 80048; 80076; 81001; 81003; 82310; 82947; 83605; 83690; 84443; 84484; 85025; 85610; 87040; 87086; 87088; 87186; 87635; 92610; 93005; 99285; J0696; J1650; J1956; J2405